=== PATIENT | female | born 1950 | race Native Hawaiian/Other Pacific Islander ===

== ENCOUNTER 2016-08-27 16:55 | Emergency (ER) | payer MEDICARE, OTHER ==
[~2016-08-27] VITALS: Ht 162.6 cm; Wt 87.0 kg
[~2016-08-27 16:55] MED LIST: ASPI81CH5; COZA50TA PO; DICY1TAB26 PO; TAB-TAB PO; ZOCO40TA PO
[2016-08-27 16:59] VITALS: BP 138/72; PULSE 80; RESP 16; TEMP 98.9; O2SAT 98
[2016-08-27] MEDS ORDERED: SIMV40TA PO (17:14)
[2016-08-27] MEDS ORDERED: LOSA25TA PO (17:14)
[2016-08-27] MEDS ORDERED: ASPI1TAB69 PO (17:14)
--- NOTE | 2016-08-27 17:29 | PD ---
HPI Chief Complaint: Laceration/Skin Injury Time Seen by Provider: 17:27 Travel History International Travel<30 days: No Contact w/Intl Traveler<30days: No Traveled to known affect area: No History of Present Illness HPI Patient comes in for evaluation of the laceration to the distal phalanx of her left middle finger occurred shortly prior to arrival. Patient states that she was cutting fabric to sew when she accidentally cut her finger. Patient denies doing anything for this prior coming to the emergency department. Reports pain around the site of the laceration without radiation. Patient is uncertain of her last tetanus shot. Denies any numbness or tingling. PFSH Past Medical History Cardiovascular Problems: Yes (HTN) High Cholesterol: Yes Hypertension: Yes Musculoskeletal: Yes (FRACTURED FIBULA) Thyroid Disease: Yes Tetanus Vaccination: Unknown Influenza Vaccination: No ?: Not Menopausal: Yes Ovarian Cysts: Yes Past Surgical History Gynecologic Surgery: Yes (STATES R/T OVARIAN CYSTS) Social History Alcohol Use: No Tobacco Use: No Substance Use: No Allergies-Medications (Allergen,Severity, Reaction): Coded Allergies: Cortisone (Verified Allergy, Unknown, RASH AND HIVES, 08/27/16) Reported Meds & Prescriptions Reported Meds & Active Scripts Active Reported Losartan (Losartan Potassium) 25 Mg Tab 25 Mg PO DAILY Simvastatin 40 Mg Tab 40 Mg PO HS Aspirin 81 Mg Tabdr 81 Mg PO DAILY Review of Systems Except as stated in HPI: all other systems reviewed are Neg Physical Exam Narrative GENERAL: Well-developed, overly nourished, in no acute distress, and non-ill appearing. SKIN: Warm and dry. Laceration noted to the lateral aspect of left middle finger. There is intact distally. Full range of motion. HEAD: Atraumatic. Normocephalic. EYES: Pupils equal and round. EOMI. No scleral icterus. No injection or drainage. ENT: No nasal bleeding or discharge. Mucous membranes pink and moist. NECK: Trachea midline. Supple. No nuclear rigidity. CARDIOVASCULAR: Capillary refill is 2 seconds. RESPIRATORY: No accessory muscle use. No respiratory distress. MUSCULOSKELETAL: No obvious deformities. No clubbing. No cyanosis. No edema. Full range of motion. NEUROLOGICAL: Awake and alert. No obvious cranial nerve deficits. Motor grossly within normal limits. Normal speech. PSYCHIATRIC: Appropriate mood and affect; insight and judgment normal. Data Data Last Documented VS Vital Signs Date Time Temp Pulse Resp B/P Pulse Ox O2 Delivery O2 Flow Rate FiO2 08/27/16 16:59 98.9 80 16 138/72 98 Orders Bupivacaine Pf 0.5% Inj (Marcaine Pf 0.5 (08/27/16 17:30) Lidocaine 1% Inj (50 Ml) (Xylocaine 1% I (08/27/16 17:30) Tetanus/Diphtheria Tox Adult (Tetanus/Di (08/27/16 17:30) MDM Medical Decision Making Medical Screen Exam Complete: Yes Emergency Medical Condition: Yes Differential Diagnosis Laceration, abrasion, skin tear, other Narrative Course The patient suffered laceration to the finger. There was no evidence to suggest foreign bodies by history and exam. Visual and tactile exams were unremarkable. There was no evidence of neurovascular injury. The patient had a normal distal vascular exam, and had full normal motor and sensory exams. There was also no evidence or tendon injury, with normal distal full range of motions, flexion, extension, abduction, adduction and opponens. There was no evidence of local joint space involvement at this time. The patient was irrigated with copious sterile normal saline and primary repair was performed. Please see procedure note. The patient was given signs and symptom warnings for infection, such as increasing pain, redness, swelling, associated heat, pus or fever. The patient was warned of possible unseen foreign body and instructed to return immediately if signs or symptoms develop. The patient was given instructions for timely follow up. The patient agreed with plan of care. Patient in no obvious distress upon re-evaluation. Any questions/concerns in reference to patient diagnosis/condition discussed and clarified prior to patient's discharge. Reinforced sheer importance of close follow up with patient 's primary physician or primary care clinic. Instructed patient to return to ED immediately, if symptoms return/worsen. Pt showed understanding of above instructions. Further instructions and recommendations were detailed in discharge paperwork. Pt ambulated without difficulty out of ED at discharge. Procedures Procedure Narrative LACERATION REPAIR LOCATION: Lateral aspect left middle finger distal phalanx LENGTH: Approximately 1 cm NUMBER OF STITCHES/CHIOMA: One simple interrupted and Dermabond per patient request REPAIR: Verbal consent was obtained. The area of the laceration was cleaned and prepped. Digital block was performed using a mixture of Marcaine without epi and lidocaine without epi. The wound was copiously irrigated and explored without evidence of foreign body, bony involvement, ligament injury, tendon injury, or neurovascular injury. The wound was closed using 5-0 Vicryl and Dermabond. This was a single layer repair. A sterile dressing was applied by nurse. The patient was advised to keep the affected area as clean and dry as possible using soap and water. There were no complications. Patient tolerated the procedure well. Diagnosis Primary Impression: Laceration of finger of left hand Qualified Code: S61.219A - Laceration of finger of left hand, initial encounter Patient Instructions: Care For Your Absorbable Stitches (DC), Finger Laceration (ED), General Instructions, Skin Adhesive Care (ED) Additional Instructions: Follow-up with your primary care physician next week for reevaluation. Keep wound dry and clean as possible using soap and water. Return to the emergency department if symptoms get worse. Disposition: 01 DISCHARGE HOME Condition: Stable Steven Karimi Aug 27, 2016 17:28
[2016-08-27] MEDS ORDERED: LIDOCAINE HCL 1% 50 ML VIAL INFIL ONE (17:30)
[2016-08-27] MEDS ORDERED: BUPIVACAINE HCL PF 0.5% 10 ML VIAL INFIL ONE (17:30)
[2016-08-27] MEDS ORDERED: TETANUS/DIPHTHERIA TOXOID ADULT 0.5 ML VIAL IM ONE (17:30)
== END 2016-08-27 18:30 | disposition home or self-care (01) ==
LOC: PHEFT 16:55
DX: S61.519A Laceration without foreign body of unspecified wrist, initial encounter (principal); I10 Essential (primary) hypertension; Z23 Encounter for immunization; E78.00 Pure hypercholesterolemia, unspecified; W45.8XXA Other foreign body or object entering through skin, initial encounter; Y93.D2 Activity, sewing; Y92.9 Unspecified place or not applicable; Y99.9 Unspecified external cause status
CPT/HCPCS: 12001; 90471; 90714